=== PATIENT | male | born 1985 | race Caucasian/White ===

== ENCOUNTER → 2022-03-20 15:11 | Outpatient (CLI) | payer OTHER, SELFPAY ==
--- NOTE | 2022-03-20 15:15 | MR_ITS ---
PROCEDURE INFORMATION: Exam: MR Lumbar Spine Without Contrast Exam date and time: 03/20/2022 3:21 PM Age: 36 years old Clinical indication: Low back pain TECHNIQUE: Imaging protocol: Magnetic resonance imaging of the lumbar spine without contrast. COMPARISON: No relevant prior studies available. FINDINGS: alignment is grossly normal. signal intensity within the bone marrow is normal. conus terminates at the mid aspect of L1. Soft tissues are unremarkable. Reactive degenerative endplate changes L2-L3 Mild neural foraminal narrowing on the left L5-S1 No marrow edema L1-L2: Central canal and neural foramina are normal. L2-L3: Central canal and neural foramina are normal. L3-L4: Central canal and neural foramina are normal. L4-L5: Central canal and neural foramina are normal. L5-S1: Broad-based annular disc bulge lateralizing to the left with paucity of fat about the exiting nerve root. Central canal and right neural foramina normal. IMPRESSION: Mild degenerative disc disease L5-S1.
--- NOTE | 2022-03-20 15:29 | XR_ITS ---
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 No fracture is identified. The sinuses are clear. No foreign body is identified. IMPRESSION: No acute process. Reviewed, Interpreted and Dictated by Gallito Maldonado III, MD Transcribed by Josue Benoit Authenticated and [facility]
== END ==
PROVIDERS: PCP Emergency Medicine; Visit Provider Emergency Medicine
DX: M54.9 Dorsalgia, unspecified (principal); M54.50 Low back pain, unspecified; H05.53 Retained (old) foreign body following penetrating wound of bilateral orbits
CPT/HCPCS: 70200; 72148; 76376

== ENCOUNTER → 2022-04-01 09:34 | Outpatient (CLI) | payer OTHER, SELFPAY ==
--- NOTE | 2022-04-01 09:45 | XR_ITS ---
FINAL REPORT CLINICAL HISTORY: rt shoulder pain FINDINGS: RIGHT SHOULDER 3 views of the right shoulder were obtained. There is no acute fracture or dislocation. The joint spaces are intact. There is no soft tissue abnormality. IMPRESSION: No acute bony abnormality. Reviewed, Interpreted and Dictated by Gallito Maldonado III, MD Transcribed by Michelle Potts Authenticated and . [facility]
== END ==
PROVIDERS: PCP Emergency Medicine; Visit Provider Orthopaedic Surgery
DX: M25.511 Pain in right shoulder (principal)
CPT/HCPCS: 73030

== ENCOUNTER 2022-04-29 11:13 | Outpatient (RCR) | payer OTHER, SELFPAY ==
--- NOTE | 2022-04-29 12:52 | HMH.PTOPEV ---
PT Outpatient Evaluation Rehab PT Outpatient Evaluation Start: 04/29/22 11:17 Freq: Status: Active Protocol: Document 04/29/22 11:17 JUANALVIN (Rec: 04/29/22 12:52 NICOLE [id number]) E-signed By Kalli Grover, PT Outpatient Therapy Subjective History Subjective History Pt is a 36 y/o male that reports history of chronic low back pain. Pt reports he initially hurt his back ~2011 while lifting a heavy plate which resulted in his back locking up and inability to stand straight. Pt reports pain improved overtime enough where he could deal with it but it never went away. Pt reports a constant dull ache of the left-side of the low back and it will lock up sometimes with twisting movements. Pt had a lumbar MRI performed at [facility] on 03/20/22 with findings of L5-S1: Broad -based annular disc bulge lateralizing to the left with paucity of fat about the exiting nerve root. Central canal and right neural foramina normal. Pt reports intermittent paresthesia of the left big toe and heel described as tingling, burning and a cold sensation. Pt reports this is worse with sitting/inactivity and improves with walking/activity . Pt reports he was prescribed Gabapentin 300mg 2x aday he has been taking for 2 months which he says helps somedays. Pt also reports he was flipped over by a cow 3.5 months ago resulting in shoulder/elbow pain for about a week later, no increase in back pain. Pt denies bowel/ bladder dysfunction. Occupation: [employer] in [place] Chief Complaint Pain,Paresthesia Symptom Type Ache,Dull,Burning,Numbness, Tingling
== END 2022-04-29 11:15 | disposition home or self-care (01) ==
LOC: PT 11:13
PROVIDERS: PCP Emergency Medicine; Visit Provider Emergency Medicine
DX: M51.36 Other intervertebral disc degeneration, lumbar region (principal)
CPT/HCPCS: 97163

== ENCOUNTER → 2022-05-27 14:32 | Outpatient (POV) | payer OTHER, SELFPAY ==
[2022-05-27 14:52] VITALS: BP 149/70; PULSE 76; RESP 20; BMI 22.9
--- NOTE | 2022-05-27 15:11 | EXP.PAIN.OV ---
HPI Data of Consult Patient: new to practice Consult date: 05/27/22 Requesting Physician: Kalli Steve APRN Primary Care Provider: Ramon Quigley MD Consult Narrative Reason for consult: Low back pain, hip pain History of present illness: Mr. Tran is a 36 year old male who presents today as a new patient. He is a referral from Dr. Quigley's office. Today he rates his pain a 6 out of 10. He states the pain is all in his low back that radiates into his bilateral lower extremities. Patient describes this as a aching sensation that is worse with increased activity along with numbness in his legs. Patient states this has been going on for years and progressively worsened over time. Patient states this does cause significant issues with performing activities of daily living such as cooking and cleaning. Patient states he cannot tolerate prolonged standing, walking due to the pain. Patient states initially he had a injury at work that started all of his pain and was on a workers comp related injury where he was off for 6 weeks. Patient states that he does use [id number] ibuprofen and Tylenol as needed with minimal improvement. Patient states he has also been on Suboxone therapy for pain relief. Patient has tried heat and ice and states heat works better. Patient has also tried lidocaine patches with no relief. Patient is currently in physical therapy and is scheduled for his second appointment tomorrow. Patient states he has never been to see a neurosurgeon but is interested in weighing his options. Patient is on gabapentin 600 mg 3 times a day from Dr. Quigley's office. Patient denies any side effects from this medication. He states this medication does help with his neuropathy symptoms. His Lam is [id number]. Its been reviewed and appropriate CC: Kalli Steve APRN [facility] Disclaimer: The information contained in this section may have been updated after the patient was seen, as this information can be updated by other users. Medical History (Updated 05/27/22 @ 15:16 by Kalli Steve APRN) Anxiety and depression Bulging disc DDD (degenerative disc disease) Fracture of right hand Insomnia Opiate addiction Family History Other Cancer Coronary artery disease Diabetes Heart attack Social History (Updated 05/27/22 @ 14:54 by Nica Mijares RN) Smoking Status: Current every day smoker alcohol intake: never substance use type: former substance user and opiates current occupational status: employed Travel in the last 8 weeks: None Review of Systems Review of Systems Review of systems:: pertinent systems reviewed and negative unless documented below Review of systems (narrative): Review of Systems: General: No recent weight changes, no fever, no sleep disturbances Respiratory: No cough, no shortness of air, no recurring pulmonary infections Cardiovascular/peripheral vascular: No chest pain, no palpitations, no edema, no shortness of breath Gastrointestinal: No new onset incontinence, normal bowel movements reported Genitourinary: No new onset incontinence Musculoskeletal: Low back pain, bilateral leg pain Psychiatric: [Normal mood/affect] Neurological: [Denies weakness in extremities], [denies balance issues] Meds Home Medications and Allergies Home Medications Medication Instructions Recorded Confirmed Type buprenorphine 8 mg-naloxone 2 mg 2 tab sublingual DAILY 03/12/22 05/06/22 History sublingual tablet meloxicam 15 mg tablet 15 mg PO DAILY #30 tabs 03/12/22 05/06/22 Rx trazodone 50 mg tablet 50 mg PO HS PRN 03/12/22 05/06/22 History clonazepam 0.5 mg tablet (Klonopin) 0.5 mg PO TID #90 tabs 05/06/22 Rx diclofenac sodium 1 % topical gel 2 g topical QID #100 grams 05/06/22 05/06/22 Rx fluoxetine 20 mg capsule (Prozac) 20 mg PO DAILY #30 caps 05/06/22 05/06/22 Rx gabapentin 600 mg tablet 600 mg PO TID #90 tabs 05/06/22 Rx li
== END ==
PROVIDERS: PCP Emergency Medicine; Visit Provider Nurse Practitioner Family
DX: M51.16 Intervertebral disc disorders with radiculopathy, lumbar region (principal); M79.606 Pain in leg, unspecified
CPT/HCPCS: 99202; G0463

== ENCOUNTER → 2022-06-26 06:41 | Outpatient (CLI) | payer OTHER, SELFPAY | PROVIDERS: PCP Student in an Organized Health Care Education/Training Program; Visit Provider Student in an Organized Health Care Education/Training Program | DX: R30.0 Dysuria (principal) | CPT/HCPCS: 87086 ==

== ENCOUNTER → 2022-07-21 08:20 | Outpatient (CLI) | payer OTHER, SELFPAY ==
[2022-07-22 22:28] LABS: Neisseria gonorrhoeae, NAA Negative (Negative)
== END ==
PROVIDERS: PCP Family Medicine; Visit Provider Family Medicine
DX: N34.2 Other urethritis (principal); N39.0 Urinary tract infection, site not specified
CPT/HCPCS: 87491; 87591

== ENCOUNTER → 2022-08-26 13:36 | Outpatient (CLI) | payer OTHER, SELFPAY ==
--- NOTE | 2022-08-26 13:36 | US_ITS ---
FINAL REPORT CLINICAL HISTORY: Thyroid nodule FINDINGS: THYROID ULTRASOUND Thyroid gland is enlarged. The right lobe of the thyroid measures 5.1 x 2.4 x 1.7 cm. The left lobe of the thyroid measures 5.0 x 1.6 x 1.4 cm. The parenchyma shows normal echogenicity. There is a 2.0 x 1.9 x 1.2 cm mostly solid isoechoic TI-RADS 3 nodule in the right lobe of the thyroid. There is a 2 mm cystic nodule in the left isthmus consistent with a TI-RADS 1. IMPRESSION: 2 cm TI-RADS 3 right thyroid nodule. Recommend continued follow-up. Reviewed, Interpreted and Dictated by Gallito Maldonado III, MD Transcribed by Josue Benoit Authenticated and [facility]
== END ==
PROVIDERS: PCP Family Medicine; Visit Provider Nurse Practitioner Family
DX: E04.1 Nontoxic single thyroid nodule (principal)
CPT/HCPCS: 76536

== ENCOUNTER → 2023-01-23 14:20 | Outpatient (CLI) | payer OTHER, SELFPAY ==
[2023-01-23 12:21] LABS: Amphetamine/Metha Screen,Urine Negative ng/ml (<1000)
[2023-01-23 12:24] LABS: Barbiturates Screen,Urine Negative ng/ml (<200)
[2023-01-23 12:25] LABS: Alanine Aminotransferase 26 U/L (12-78); Albumin Level 4.5 g/dl (3.5-5.0); Albumin/Globulin Ratio 1.5 (1.1-1.8); Alkaline Phosphatase 108 U/L (38-126); Anion Gap 12.2 mEq/L (5-15); Aspartate Amino Transferase 27 U/L (17-59); Benzodiazepines Screen,Urine Negative ng/ml (<200); Bilirubin,Total 0.4 mg/dl (0.2-1.3); Blood Urea Nitrogen 12 mg/dl (9-20); Calcium 9.2 mg/dl (8.4-10.2); Cannabinoid Screen,Urine Negative ng/ml (<50); Carbon Dioxide 29 mmol/L (22.0-30.0); Chloride 102 mmol/L (98-107); Cholesterol 191 mg/dl (140-200); Estimated Glomerular Filt Rate 110 ml/min (>60); GFR (African American) 133 ML/MIN (>60); Glucose 103 mg/dl (74-100); HDL Cholesterol 38 mg/dl (40-60); Potassium 4.2 mmoL/L (3.5-5.1); Sodium 139 mmol/L (136-145); Total Protein,Serum 7.5 g/dl (6.3-8.2); Triglycerides 77 mg/dl (30-150); VLDL Cholesterol 15 mg/dL (0-40)
[2023-01-23 12:26] LABS: Cocaine Screen,Urine Negative ng/ml (<300)
[2023-01-23 12:27] LABS: Methadone Screen,Urine Negative ng/ml (<300); Opiate Screen,Urine Negative ng/ml (<300)
[2023-01-23 12:28] LABS: Phencyclidine Screen,Urine Negative ng/ml (<25)
[2023-01-23 12:35] LABS: Basophils % 0.6 % (0.1-2.0); Eosinophils # 0.2 K/mm3 (0.0-0.4); Eosinophils % 3.1 % (0.1-12.0); Hematocrit 45.1 % (42.0-52.0); Hemoglobin 14.3 g/dL (14.1-18.0); Lymphocytes # 2.5 K/mm3 (0.7-4.5); Lymphocytes % 43.1 % (10-50); Mean Corpuscular HGB Conc 31.7 g/dL (31.8-35.4); Mean Corpuscular Hemoglobin 28.1 pg (27.0-31.2); Mean Corpuscular Volume 88.7 fl (80-94); Mean Platelet Volume 7.9 fl (7.4-10.4); Monocytes # 0.4 K/mm3 (0.1-1.0); Monocytes % 6.2 % (1.7-9.3); Neutrophils # 2.7 K/mm3 (1.8-7.8); Neutrophils % 47.1 % (37.0-80.0); Platelet Count 280 K/mm3 (142-424); Red Blood Count 5.09 M/mm3 (4.60-6.20); White Blood Count 5.7 K/mm3 (4.8-10.8)
[2023-01-23 12:37] LABS: Direct LDL Cholesterol 122.46 mg/dL (100-129)
[2023-01-23 12:38] LABS: HCG Qualitative, Serum Negative (Negative)
[2023-01-23 12:43] LABS: T4 (Thyroxine) 10.5 ug/dl (5.53-11.0)
[2023-01-23 12:57] LABS: Thyroid Stimulating Hormone 1.37 uIU/mL (0.465-4.68)
[2023-01-24 09:26] LABS: HSV 1 IgG, Type Spec 1.18 index (0.00-0.90); HSV 2 IgG, Type Spec <0.91 index (0.00-0.90); Rapid Plasma Reagin Ab Titer Non Reactive (NonRea<1:1)
[2023-01-24 12:58] LABS: HIV Screen 4th Generation wRfx Non Reactive (Non Reactive)
[2023-01-26 23:14] LABS: Neisseria gonorrhoeae, NAA Negative (Negative)
== END ==
PROVIDERS: PCP Nurse Practitioner Family; Visit Provider Nurse Practitioner Family
DX: E04.1 Nontoxic single thyroid nodule (principal); R53.83 Other fatigue; T50.B95A Adverse effect of other viral vaccines, initial encounter; Z79.899 Other long term (current) drug therapy; Z11.3 Encounter for screening for infections with a predominantly sexual mode of transmission; Z11.4 Encounter for screening for human immunodeficiency virus [HIV]
CPT/HCPCS: 80053; 80061; 80305; 82306; 84436; 84443; 84703; 85025; 86593; 86695; 86703; 86790; 87491; 87591; G0432

== ENCOUNTER → 2023-05-04 13:19 | Outpatient (CLI) | payer OTHER, SELFPAY ==
--- NOTE | 2023-05-04 13:20 | US_ITS ---
FINAL REPORT TECHNIQUE: Real-time grayscale and color ultrasound of the thyroid was performed. CLINICAL HISTORY: multiple thyroid nodule COMPARISON: 08/26/2022 FINDINGS: The thyroid gland measures 57 mm on the right and 52 mm on the left. The isthmus measures 3 mm. Nodules: On the right is a 21 x 13 x 18 mm cystic and solid isoechoic TR 2 nodule. IMPRESSION: 21 mm right TR 2 nodule with no follow-up recommended per TI-RADS criteria. Reviewed, Interpreted and Dictated by Gallito Maldonado III, MD Transcribed by Sneha Tomas Authenticated and [facility]
== END ==
PROVIDERS: PCP Nurse Practitioner Family; Visit Provider Nurse Practitioner
DX: E04.2 Nontoxic multinodular goiter (principal)
CPT/HCPCS: 76536

== ENCOUNTER 2023-07-07 20:26 | Outpatient (CLI) | payer OTHER, SELFPAY ==
[2023-07-07 19:07] LABS: Free T4 (Free Thyroxine) 1.39 ng/dl (0.78-2.19)
[2023-07-07 19:22] LABS: Thyroid Stimulating Hormone 1.56 uIU/mL (0.465-4.68)
[2023-07-07 22:19] LABS: Amphetamine/Metha Screen,Urine Negative ng/ml (<1000)
[2023-07-07 22:20] LABS: Barbiturates Screen,Urine Negative ng/ml (<200)
[2023-07-07 22:21] LABS: Benzodiazepines Screen,Urine Negative ng/ml (<200); Cannabinoid Screen,Urine Negative ng/ml (<50)
[2023-07-07 22:22] LABS: Cocaine Screen,Urine Negative ng/ml (<300)
[2023-07-07 22:23] LABS: Methadone Screen,Urine Negative ng/ml (<300); Opiate Screen,Urine Negative ng/ml (<300)
[2023-07-07 22:24] LABS: Phencyclidine Screen,Urine Negative ng/ml (<25)
[2023-07-09 15:18] LABS: Thyroglobulin Level <1.0 IU/mL (0.0-0.9)
[2023-07-12 17:23] LABS: Gabapentin,Urine 31.9 ug/mL (.)
[2023-07-14 18:07] LABS: Alprazolam Negative (Cutoff=100); Benzodiazepines Positive ng/mL (Cutoff=100); Clonazepam Positive (.); Clonazepam Confirm 470 ng/mL (Cutoff=100); Flurazepam Negative (Cutoff=100); Lorazepam Negative (Cutoff=100); Midazolam Negative (Cutoff=100); Temazepam Negative (Cutoff=100); Triazolam Negative (Cutoff=100)
== END 2023-07-07 23:59 ==
LOC: LAB.DROPOF 20:27
PROVIDERS: Nurse Practitioner; PCP Nurse Practitioner Family; Visit Provider Nurse Practitioner Family
DX: F41.9 Anxiety disorder, unspecified (principal); E04.2 Nontoxic multinodular goiter; Z79.899 Other long term (current) drug therapy
CPT/HCPCS: 80307; 80346; 84439; 84443; 86800

== ENCOUNTER 2024-05-24 12:25 | Outpatient (CLI) | payer OTHER, SELFPAY ==
[2024-05-24 19:03] LABS: Basophils # 0.1 K/mm3 (0-0.2); Basophils % 1.1 % (0.1-2.0); Eosinophils # 0.1 K/mm3 (0.0-0.4); Eosinophils % 1.5 % (0.1-12.0); Hematocrit 47.6 % (42.0-52.0); Lymphocytes # 1.8 K/mm3 (0.7-4.5); Lymphocytes % 35.3 % (10-50); Mean Corpuscular HGB Conc 33.5 g/dL (31.8-35.4); Mean Corpuscular Hemoglobin 29.4 pg (27.0-31.2); Mean Corpuscular Volume 87.6 fl (80-94); Monocytes # 0.2 K/mm3 (0.1-1.0); Monocytes % 4.3 % (1.7-9.3); Neutrophils % 57.7 % (37.0-80.0); Platelet Count 258 K/mm3 (142-424); Red Blood Count 5.44 M/mm3 (4.60-6.20); Red Cell Distribution Width 13.8 % (11.5-17.5); White Blood Count 5.2 K/mm3 (4.8-10.8)
[2024-05-24 20:18] LABS: Alanine Aminotransferase 39 U/L (12-78); Albumin Level 4.7 g/dl (3.5-5.0); Albumin/Globulin Ratio 1.7 (1.1-1.8); Alkaline Phosphatase 95 U/L (38-126); Anion Gap 13.8 mEq/L (5-15); Aspartate Amino Transferase 43 U/L (17-59); Bilirubin,Total 0.3 mg/dl (0.2-1.3); Blood Urea Nitrogen 8 mg/dl (9-20); Calcium 9.7 mg/dl (8.4-10.2); Carbon Dioxide 26 mmol/L (22.0-30.0); Chloride 105 mmol/L (98-107); Chol/HDL Ratio 3.5 (1-3.5); Cholesterol 171 mg/dl (140-200); Estimated Glomerular Filt Rate 109 ml/min (>60); GFR (African American) 132 ML/MIN (>60); Globulin 2.7 g/dL (1.3-3.2); Glucose 85 mg/dl (74-100); HDL Cholesterol 49 mg/dl (40-60); Potassium 4.8 mmoL/L (3.5-5.1); Sodium 140 mmol/L (136-145); Total Protein,Serum 7.4 g/dl (6.3-8.2); Triglycerides 71 mg/dl (30-150); VLDL Cholesterol 14 mg/dL (0-40)
[2024-05-24 20:29] LABS: Direct LDL Cholesterol 118.94 mg/dL (100-129)
[2024-05-24 20:35] LABS: HIV (1&2) Antibody Rapid NONREACTIVE (NONREACTIVE)
[2024-05-24 20:38] LABS: 25-OH Vitamin D, Total 32.4 ng/mL (30-100)
[2024-05-24 20:48] LABS: Thyroid Stimulating Hormone 0.53 uIU/mL (0.465-4.68)
[2024-05-24 21:24] LABS: Vitamin B12 507 pg/mL (239-931)
[2024-05-24 21:36] LABS: Folate 6.53 ng/mL
[2024-05-24 21:39] LABS: Iron 113 ug/dL (49-181); Total Iron Binding Capacity 368 ug/dL (261-462)
[2024-05-26 08:17] LABS: HCV Ab Non Reactive (Non Reactive)
== END 2024-05-24 23:59 | disposition home or self-care (01) ==
LOC: LAB.DROPOF 05-25 10:40
PROVIDERS: PCP Nurse Practitioner Family; Visit Provider Nurse Practitioner Family
DX: F41.1 Generalized anxiety disorder (principal); F41.0 Panic disorder [episodic paroxysmal anxiety]; F41.9 Anxiety disorder, unspecified; M51.9 Unspecified thoracic, thoracolumbar and lumbosacral intervertebral disc disorder; M51.369 Other intervertebral disc degeneration, lumbar region without mention of lumbar back pain or lower extremity pain; Z11.59 Encounter for screening for other viral diseases; F32.9 Major depressive disorder, single episode, unspecified
CPT/HCPCS: 80050; 80053; 80061; 82306; 82607; 82746; 83540; 83550; 84443; 85025; 86803; 87389

== ENCOUNTER 2024-05-30 16:44 | Emergency (ER) | payer OTHER, SELFPAY ==
[2024-05-30 17:20] VITALS: BP 131/76; PULSE 81; RESP 19; TEMP 36.7; O2SAT 98; BMI 21.5
--- NOTE | 2024-05-30 17:55 | ED_ITS ---
Discharge Plan Disposition Patient Disposition: Home, Self-Care Condition: Good Prescriptions Prescriptions: No Action trazodone 50 mg tablet 25 - 50 mg PO HS PRN (Reason: sleep) Qty: 30 0RF desvenlafaxine succinate [Pristiq] 50 mg tablet extended release 24 hr 50 mg PO DAILY Qty: 30 0RF Referrals Follow up/Referrals: Den Pandya APRN [Primary Care Provider] - See instructions Activity Restrictions/Add. Instructions Additional Instructions/Restrictions: Suture/Staple instructions: ?You have required stitches or [place] today. Please read the following instructions so you know how to care for them: ?1. Keep wound area dry for the first 24 hours. 2?? May clean gently with mild soap and water, after 48 hours to prevent crusting over suture knots. 3. You may shower if your provider gives permission but do not take a bath until the skin is healed.. 4. Never leave a wet dressing or Band-Aid on your stitches as this allows bacteria to reach the area and may cause infection. Band-aids can cause the wound to sweat and not recommended to wear for long periods of time Watch for signs of infection: ? Increasing redness, tenderness or warmth around the suture site ? Unusual swelling around the site ? Appearance of pus around each suture or any red streaks ? Fever If you develop any of the above signs or symptoms of infection, Follow up with Family Physician immediately 5. Suture removal in _10-12___days 6. Return to [facility] or follow up with family doctor for removal. This can be done by any medical provider dur?ing regular hours on Thursday through Thursday, by appointment. Call Hand or the person who did your surgery on your hand for appointment Clinical Impressions Clinical Impression: Finger laceration Instructions Patient Instructions: DI for Laceration Repair, DI for Laceration Repair -- Finger Print Language Print Language: Greek Discharge ED Provider: Ramya Finnegan [facility] HPI General Stated complaint: [id number]@1000 middle finger RT hand Mode of Arrival: Ambulatory Source of Information: Patient Limitations: No Limitations Time Seen by Provider: 05/30/24 17:55 Description of Symptoms (Recalled from Triage Doc. by RN): PATIENT C/O LACERTAION TO RIGHT MIDDLE FINGER AFTER GETTING IT SHUT IN A TRUCK DOOR TODAY HEENT Symptoms (Recalled from RN notes): No Resp Symptoms (Recalled from RN notes): No Skin Symptoms (Recalled from RN notes): Yes MS Symptoms (Recalled from RN notes): No Functional Status (Recalled from RN notes): WNL History of Present Illness Provider Complaint: Patient states that he accidently shut his finger in a car door earlier today cutting the tip of his right middle finger States that he thought he could put some liquid bandaid on it and get it to close but it wouldnt and came back open so he came in to get it checked and see if he needed stitches Related Data Previous Rx's ?Medication ?Instructions ?Recorded desvenlafaxine succinate 50 mg 50 mg PO DAILY #30 tabs 04/25/24 tablet,extended release 24 hr (Pristiq) trazodone 50 mg tablet 25 - 50 mg (0.5 - 1 x 50 mg) PO HS 04/25/24 PRN sleep #30 tabs Allergies Allergy/AdvReac Type Severity Reaction Status Date / Time morphine Allergy Intermediate Rash Verified 05/30/24 09:02 amoxicillin Allergy Mild rash Verified 05/30/24 09:02 Worker's Comp Is this a Worker's Comp case?: No [facility] Disclaimer: The information contained in this section may have been updated after the patient was seen, as this information can be updated by other users. Medical History Hearing loss Dysphagia Vision changes Chronic headaches Multiple thyroid nodules Urethritis Lumbar radiculopathy Tobacco use Bulging disc DDD (degenerative disc disease) Fracture of right hand Anxiety and depression Insomnia Opiate addiction Surgical History No pertinent past surgical history Family History Other Cancer Coronary artery disease Diabetes Heart attack Social History Smoking Status: Current every day smoker tobacco type: cigarettes packs per day: 1 alcohol intake: never substance use type: former substance user and opiates current occupational status: employed Travel in the last 8 weeks: None lives independently: Yes marital status: single Have you lived/traveled outside [place] in past 30 days?: No Contact w/someone who lives/traveled outside US past 30 days?: No Exposure to someone with infectious disease in past 14 days?: No Do you have a fever (greater than 100.4 F or 38 C)?: No Have you tested positive for COVID-19: No Exposed to someone with COVID-19 in past 14 days?: No Do you have a sore throat?: No Do you have a cough?: No Do you have any weakness?: No Do you have any diarrhea?: No Are you experiencing any unusual bleeding?: No Do you have any muscle aches/pain?: No Do you have any abdominal pain?: No Are you experiencing loss of taste or smell?: No ROS Obtained: Yes All systems reviewed & no additional complaints except as documented and Yes Systems reviewed as appropriate & no additional complaints except as documented Constitutional Constitutional: Reports system reviewed and no additional complaints, except as documented and Reports as per HPI ENT Ears, Nose, Mouth, and Throat: Reports system reviewed and no additional complaints, except as documented and Reports as per HPI Cardiovascular Cardiovascular: Reports system reviewed and no additional complaints, except as documented and Reports as per HPI Respiratory Respiratory: Reports system reviewed and no additional complaints, except as documented and Reports as per HPI Gastrointestinal Gastrointestingal: Reports system reviewed and no additional complaints, except as documented and as per HPI Integumentary/Breasts Skin/Breast: Reports system reviewed and no additional complaints, except as documented, Reports as per HPI and Reports other Comments: laceration to pad of right middle finger Physical Exam General General appearance: alert and in no apparent distress ENT ENT exam: Present mucous membranes moist Respiratory Respiratory exam: Present normal lung sounds bilaterally; Absent respiratory distress or wheezes Cardiovascular Cardiovascular exam: Present regular rate, normal rhythm and normal heart sounds Abdominal Exam Abdominal exam: Present soft and normal bowel sounds; Absent distention or tenderness Expanded Upper Extremity Exam Right: Hand L/R front image: 2 1. laceration (no active bleeding, able to move and bend finger easily) Neurological Exam Neurological exam: Present alert, oriented X3 and normal gait Medical Decision Making Medical Records Screening: Per USPSTF and CDC recommendations, given the prevalence of disease in our region, it is our hospital?s policy to screen for HIV and viral Hepatitis for all patients aged 18 and over and those with ongoing risk factors. Lam Inquiry Pt receiving controlled substance: No Lam was queried for this patient: No Vital Signs: 05/30/24 17:20 Temperature 98.0 F Temperature Source Oral Pulse Rate [Left Brachial] 81 Respiratory Rate 19 Blood Pressure [Left Arm] 131/76 Blood Pressure Mean [Left Arm] 94 Blood Pressure Source [Left Arm] Automatic Cuff Blood Pressure Position [Left Arm] Sitting 02 Sat by Pulse Oximetry 98 Oxygen Delivery Method Room Air Radiology Data #1: Image(s): Hand Image Reviewed: Yes I have reviewed radiologist's interpretation IMPRESSION: 1. Soft tissue injury/laceration distal 3rd finger. 2. Cannot exclude tiny chip fracture volar base of the distal phalanx 3rd finger and at the radial margin of the tuft. Procedures Laceration Laceration 1: Site: finger Side (If applicable): right Size (cm): 1.5 Description: linear and flap Local Anesthetic: lidocaine 1% Amount of anesthesia used (mL): 1 Pre-repair: wound explored and irrigated extensively Skin layer closed with: nylon Size (cm): 5-0 Number of sutures: 6 Technique: simple, interrupted (wound edge approximated well)
--- NOTE | 2024-05-30 17:58 | XR_ITS ---
PROCEDURE INFORMATION: Exam: XR Right Hand Exam date and time: 05/30/2024 6:02 PM Age: 38 years old Clinical indication: Injury or trauma; Other: Shut in truck door; Blunt trauma (contusions or hematomas); Hand; Right; Prior surgery; Surgery date: 6+ months; Surgery type: Broken metacarpal; Additional info: Shut in truck door, injury to 3rd digit TECHNIQUE: Imaging protocol: Radiologic exam of the right hand. Views: 3 or more views. Total images: 3 COMPARISON: No relevant prior studies available. FINDINGS: Bones/joints: Cannot exclude tiny chip fracture volar base of the distal phalanx 3rd finger and the radial margin of the tuft. Otherwise, no acute fracture or joint dislocation. Joint spaces are preserved. No concerning bone lesions. Status post remote ORIF 4th metacarpal. No hardware loosening. Soft tissues: Soft tissue injury/laceration distal 3rd finger. No radiopaque foreign body. IMPRESSION: 1. Soft tissue injury/laceration distal 3rd finger. 2. Cannot exclude tiny chip fracture volar base of the distal phalanx 3rd finger and at the radial margin of the tuft.
[2024-05-30 19:57] VITALS: BP 131/76; PULSE 81; RESP 19; TEMP 36.7; O2SAT 98
== END 2024-05-30 20:05 | disposition home or self-care (01) ==
PROVIDERS: Emergency Provider Nurse Practitioner; PCP Nurse Practitioner Family
DX: S61.212A Laceration without foreign body of right middle finger without damage to nail, initial encounter (principal); W23.0XXA Caught, crushed, jammed, or pinched between moving objects, initial encounter
CPT/HCPCS: 12001; 73130; 99214; G0382

== ENCOUNTER 2024-05-31 09:27 | Outpatient (CLI) | payer OTHER, SELFPAY ==
[2024-06-03 03:38] LABS: Trichomonas Vaginalis, NAA Negative (Negative)
[2024-06-03 08:15] LABS: Neisseria gonorrhoeae, NAA Negative (Negative)
== END 2024-05-31 23:59 | disposition home or self-care (01) ==
LOC: LAB.DROPOF 06-01 10:51
PROVIDERS: PCP Nurse Practitioner Family; Visit Provider Nurse Practitioner Family
DX: Z20.2 Contact with and (suspected) exposure to infections with a predominantly sexual mode of transmission (principal)
CPT/HCPCS: 87491; 87591; 87661

== ENCOUNTER 2024-07-11 14:00 | Outpatient (RCR) | payer OTHER, SELFPAY ==
--- NOTE | 2024-07-06 15:52 | HMH.PTOPEV ---
PT Outpatient Evaluation Rehab PT Outpatient Evaluation Start: 07/06/24 13:29 Freq: Status: Active Protocol: Document 07/06/24 15:22 ANGELITO (Rec: 07/06/24 15:50 ANGELITO [id number]) E-signed By Duran Pandya, PT Outpatient Therapy Subjective History Subjective History Patient is a 38 year old male presenting to outpatient PT with reports of chronic LBP with BLE radicular symptoms R> L. Symptoms of insidious onset starting approx 2 years ago. No recent imaging on file to report. Relief of radicular symptoms noted with lumbar extension, indicating possible disc pathology. SI special tests negative. No other comorbidities to report. New diagnosis of cancer in past 12 No months? Chief Complaint Pain,Stiff,Paresthesia Symptom Type Ache,Sharp,Numbness,Tingling Symptoms Relieved By Rest/Positioning,Heat,Ice Symptoms Aggravated By Sitting,Standing,Bending/ Stooping,Physical Activity, Walking,Lifting Prior Functional Limitations None Current Functional Limitations Reaching,Lifting,Housework, Sleeping,Standing,Sitting, Walking,Bending/Stooping Symptom Description Constant but Variable Level of pain today (0-10) 4 Pain scale - at its best (0-10) 3 Pain scale - at its worst (0-10) 6 Lumbopelvic Eval Posture Thoracic Spine Posture Standing Position Neutral Lumbar Spine Posture Standing Position Neutral Assistive device Assistive Devices None / NA Palapation tenderness bilateral lumbar spinal tenderness Yes: L5/S1 2/4 Accessory Movement L5 right S1 right Range of Motion Lumbar Spine Active Flexion Range of 75 Motion (degrees) Lumbar Spine Active Extension Range of 14 Motion (degrees) Left Lumbar Spine Lateral Flexion Active 22 Range of Motion (degrees) Right Lumbar Spine Lateral Flexion 14 Active Range of Motion (degrees) Manual Muscle Test Bilateral Knee Extension Strength Grade 5 Normal Knee Flexion Strength Grade 5 Normal Hip Flexion Strength Grade 5 Normal Hip Abduction Strength Grade 5 Normal Hip Adduction Strength Grade 5 Normal Hip External Rotation Strength Grade 5 Normal Hip Internal Rotation Strength Grade 5 Normal Hip Extension Strength Grade 5 Normal Gluteus Frederick Strength Grade 5 Normal Extensor Hallucis Longus Strength Grade 5 Normal Ankle Dorsiflexion Strength Grade 5 Normal Gastronemius/Soleus Strength Grade 5 Normal Altered Sensation LE Dermatome Level L5,S1 Comment NT Special Tests Hip Kingsley (LILIA) Test Positive Left,Positive Right Hip Jade Test Positive Left,Positive Right Hip Piriformis Test Positive Left,Positive Right Eric Test Positive Sacroiliac Joint Distraction Test Negative Left,Negative Right Lumbar Spine Sanders Test Negative Left,Negative Right Lumbar Long [place] Distraction Test/Manual Positive Traction Oswestry Index Section 1 Pain Intensity The pain comes and goes and is moderate Section 2 Personal Care (Washing,Dresing) my way of washing or dressing even though it causes some pain Section 3 Lifting I can lift heavy weights, but it gives me extra pain Section 4 Walking I have some pain when walking but it does not increase with distance Section 5 Sitting Pain prevents me from sitting for more than one hour Section 6 Standing I cannot stand more than 1/2 hour without increasing pain Section 7 Sleeping Because of my pain, my normal night's sleep is less than 6 hours sleep Section 8 Social Life Pain has restricted my social life to my home Section 9 Traveling Pain restricts me to short necessary journeys under 30 minutes Section 10 Changing Degreee of Pain My pain is gradually getting worse Score and Risk Level Oswestry Sc 24 Oswestry Risk Level Moderate Disability Outpatient Therapy Assessment Impairments Problems/Impairmments Palpation Tenderness,Impaired Range of Motion,Impaired Strength,Impaired Walking, Impaired Standing,Impaired Sitting,Impaired Lifting, Impaired Household Care, Impaired Bending,Impaired Recreational Activities, Impaired Work Activities, Subjective C/O Pain Prognosis Rehab Potential Good Clinical Impression Consistent with Diagnosis Yes Short Term Goals Number of Weeks 2 Decrease Subjective C/O Pain Yes: 09/22 at worst Patient to be Ind w/ HEP Yes Assisted Goals Number of Weeks 4-6 Decreased Palpation Tenderness Yes: 1/4 Increase Range of Motion Yes: WNL Increase Strength Yes: BLE/core 5/5 Increase Ability to Walk Yes: 30 min without difficulty Increase Ability to Stand Yes: Increase Ability to Sit Yes Improve Tolerance to Work Activities Yes Improve Oswestry Score Yes: mild difficulty Decrease Subjective C/O Pain Yes: 210 at worst Outpatient Therapy Plan of Care Treatment Plan May Include Therapeutic Exercise Including Home Yes Exercise Program Manual Therapy Techniques Yes Neuromuscular Re-education Yes Therapeutic Activities to Return to Yes Previous Functional/Work Level Gait Training Yes ADL/Self Care Education Yes Mechanical Traction Yes Dry Needling Yes Thermal Modalities Yes Electrical Stimulation Yes Ultrasound/Phonophoresis Yes Iontophoresis Yes Orthotics/Bracing/Splinting Yes Massage Yes Eval/Re-Eval Yes Frequency Times per week 2-3 Duration Number of Weeks 4-6 Addendums This patient is a candidate for social No or vocational rehab? Patient/Guardian verbally acknowledges Yes understanding of treatment program and consents to further treatment? Patient/Guardian verbally acknowledges Yes understanding of diagnosis, prognosis and goals for treatment? Eval Complexity PT Charges 22985 - Moderate Complexity Shoulder/Elbow Eval Shoulder Objective Measurements Elbow Objective Measurements PHYSICIAN CERTIFICATION: I certify the specified therapy services for Yuval Tran are required, authorized, and reviewed every 30 days.
== END 2024-07-11 23:59 | disposition home or self-care (01) ==
LOC: PT 14:00
PROVIDERS: Visit Provider Nurse Practitioner Family
DX: M51.360 Other intervertebral disc degeneration, lumbar region with discogenic back pain only (principal); M54.16 Radiculopathy, lumbar region
CPT/HCPCS: 97110; 97163